=== PATIENT | female | born 1945 | race Caucasian/White ===

== ENCOUNTER → 2022-07-12 16:05 | Outpatient (BNVA) | payer MEDICARE, SELFPAY | PROVIDERS: Visit Provider Nurse Practitioner | DX: R05.9 Cough, unspecified (principal) | CPT/HCPCS: 87400 ==

== ENCOUNTER 2023-10-23 14:12 | Inpatient (IN) | payer MEDICARE, OTHER, SELFPAY ==
[2023-10-23] VITALS (15 sets, daily range): BP systolic 99–167; BP diastolic 60–95; PULSE 97–139; RESP 16–24; TEMP 36.8–39.6; O2SAT 94–100; BMI 23.1; BMI 24.4
--- NOTE | 2023-10-23 15:16 | ED_ITS ---
HPI - Fever 2 General: Chief Complaint: Fever Stated Complaint: abd pain Time Seen by Provider: 10/23/23 15:08 History of Present Illness: 78-year-old female with a history of hyp ertension and kidney stones who presents emergency room with right lower quadrant abdominal pain, nausea vomiting and fevers. Symptoms started yesterday. She had nausea and vomiting overnight. She has been having some fairly severe right-sided abdominal pain but is subsided right now. No flank pain. She says she has had surgery of kidney stones before but no abdominal surgeries. No appendectomy. No cholecystectomy. No bowel surgeries. No altered mental status. No focal motor deficits. No chest pain. No shortness of breath. No cough. Related Data Home Medications Medication Instructions Recorded Confirmed lisinopril 5 mg tablet 5 mg PO DAILY 07/12/22 07/12/22 Previous Rx's Medication Instructions Recorded albuterol sulfate 90 mcg/actuation 2 puff inhalation Q6H PRN 07/12/22 aerosol inhaler (Ventolin HFA) shortness of breath or wheezing #6.7 grams azithromycin 250 mg tablet See Rx Instructions PO .COMPLEX #6 07/12/22 tabs Allergies Allergy/AdvReac Type Severity Reaction Status Date / Time Sulfa (Sulfonamide Allergy hives Verified 10/23/23 14:39 Antibiotics) Review of Systems 2 Narrative: Constitutional symptoms: Negative except as documented in HPI. Skin symptoms: Negative except as documented in HPI. Eye symptoms: Negative except as documented in HPI. ENMT symptoms: Negative except as documented in HPI. Respiratory symptoms: Negative except as documented in HPI. Cardiovascular symptoms: Negative except as documented in HPI. Gastrointestinal symptoms: Negative except as documented in HPI. Genitourinary symptoms: Negative except as documented in HPI. Musculoskeletal symptoms: Negative except as documented in HPI. Neurologic symptoms: Negative except as documented in HPI. Psychiatric symptoms: Negative except as documented in HPI. Endocrine symptoms: Negative except as documented in HPI. Physical Exam 2 Narrative: EXAM NARRATIVE: General: Alert, no acute distress. Skin: Warm, dry. Head: Normocephalic, atraumatic. Neck: Supple, trachea midline. Eye: Extraocular movements are intact. Ears, nose, mouth and throat: Tacky oral mucosa Cardiovascular: Regular, Normal peripheral perfusion. Respiratory: Lungs are clear to auscultation, respirations are non-labored, breath sounds are equal, Symmetrical chest wall expansion. Gastrointestinal: Soft, right lateral lower abdominal pain, Non distended Musculoskeletal: Normal ROM, no deformity. Neurological: Alert and oriented, No focal neurological deficit observed. Psychiatric: Cooperative, appropriate mood & affect. Course 2 Vital Signs: Vital signs: Vital Signs Temperature 103.2 F H 10/23/23 19:22 Pulse Rate 139 H 10/23/23 19:22 Respiratory Rate 24 H 10/23/23 19:22 Blood Pressure 139/76 10/23/23 19:22 Pulse Oximetry 94 10/23/23 19:22 Oxygen Delivery Me thod Room Air 10/23/23 19:22 MDM - Fever Medical Decision Making Medical decision making: Differential diagnosis for this patient with right lower quadrant abdominal pain including but not limited to and based on the above HPI, review of systems and physical exam: Ureterolithiasis. Urinary tract infection. Appendicitis. colitis. small bowel obstruction. Crohn's flare. Pancreatitis. Cholelithiasis or cholecystitis. Hepatitis. Diverticulitis. Constipation. ovarian cyst. ovarian torsion Workup: Orders were placed to evaluate differential diagnosis based on the above differential, HPI and exam: Lab Review: Laboratory results were reviewed and interpreted by myself the emergency room physician. Patient has leukocytosis with white count of 12 and notably this is 90% left shifted. Hemoglobin is 12 as well. BUN and creatinine are 30 and 1.6 would indicate some renal failure, however this could be her baseline. I do not have any previous laboratory values available. Urine is most definitely infected and she has some hematuria as well so CT scan was ordered to rule out any obstructive uropathy or kidney stones. CT of the abdomen pelvis with contrast: Moderate asymmetric right perineal fat stranding without organized fluid collection this is likely pyelonephritis or possibly a passed stone. She has stones in both kidneys. This was reviewed and interpreted by myself the emergency room physician. I also reviewed the radiology report. I reviewed the patient's medical record Reexamination: Upon reexamination patient actually appears more ill. She is having rigors and has spiked a temperature of over 103. Her heart rate has gone from the 1 teens up to the 130s. She appears very ill. Blood pressure has maintained in the 130s. She is not requiring any oxygen. Altered mental status. No focal motor deficits. Consultation: I spoke with Dr. Pritchard who agrees with admission to the ICU. Consultation: I have consulted the PICC team for PICC line placement. She has very minimal access. And fluids were delayed secondary to a very lengthy time before IV was actually placed after many many tries. Assessment and plan: Sepsis Pyelonephritis Urinary tract infection Hematuria Renal insufficiency Tachycardia Fever -2 L normal saline bolus. Fluid volumes based on body weight. 1/3 L was given just prior to admission. -Broad-spectrum antibiotics were administered. Cefepime was given -Sepsis quality measures. -Lactic acid with a reflex was ordered. -Blood cultures were ordered. -I discussed the patient with the hospitalist on-call who is admitting the patient. - Discussed findings and plan with patient. Answered any questions. - All laboratory values were reviewed and interpreted personally by myself, the ER physician - All imaging was reviewed and interpreted personally by myself, the ER physician. - Evaluation and treatment of this problem were appropriate in the emergency setting Critical care -I spent a total of >65 minutes of critical care time managing the patient, independent of any other practitioner. -The time involved in the performance of separately reportable procedures was not counted towards critical care time. Lab Data 10/23/23 15:49 10/23/23 15:49 Radiology Impressions Abdomen/Pelvis CT 10/23/23 16:21 IMPRESSION: 1. Moderate asymmetric right perirenal fat stranding without organized fluid collection. Differential includes pyelonephritis or possibly recently passed stone given mild hydronephrosis without obstructing stone. 2. Bilateral nonobstructive nephrolithiasis. 3. Tiny left renal calyx air lucency. Query recent procedural history. Otherwise consideration for emphysematous pyelitis. 4. Additional chronic and incidental findings as above, to include atherosclerosis and colonic diverticulosis. Laboratory Results WBC 11.49 10^3/uL (3.29-11.43) H 10/23/23 15:49 RBC 3.46 10^6/uL (3.85-5.65) L 10/23/23 15:49 Hgb 12.10 g/dL (11.27-16.99) 10/23/23 15:49 Hct 36.4 % (36-47) 10/23/23 15:49 MCV 105.2 fl (85-98) H 10/23/23 15:49 MCH 35.0 pg (27-33) H 10/23/23 15:49 MCHC 33.2 g/dL (30-55) 10/23/23 15:49 RDW 14.0 % (12.1-15.1) 10/23/23 15:49 Plt Count 163 10^3/cmm (157-399) 10/23/23 15:49 MPV 10.4 fL (7.4-10.4) 10/23/23 15:49 Neut % (Auto) 90.7 % 10/23/23 15:49 Lymph % (Auto) 3.4 % 10/23/23 15:49 Edmunds % (Auto) 5.1 % 10/23/23 15:49 Eos % (Auto) 0.0 % 10/23/23 15:49 Baso % (Auto) 0.2 % 10/23/23 15:49 Neut # (Auto) 10.42 10^3/uL (1.8-7.7) H 10/23/23 15:49 Lymph # (Auto) 0.4 10^3/uL (0.8-4.8) L 10/23/23 15:49 Edmunds # (Auto) 0.6 10^3/uL (0.2-0.9) 10/23/23 15:49 Eos # (Auto) 0.0 10^3/uL (0.0-0.8) 10/23/23 15:49 Baso # (Auto) 0.0 10^3/uL (0.0-0.1) 10/23/23 15:49 Nucleated RBC % (auto) 0 % 10/23/23 15:49 Nucleated RBCs # 0.0 /100WBC 10/23/23 15:49 Sodium 142 mmol/L (136-145) 10/23/23 15:49 Potassium 4.3 mmol/L (3.5-5.1) 10/23/23 15:49 Chloride 105 mmol/L (98-107) 10/23/23 15:49 Carbon Dioxide 20 mmol/L (22-29) L 10/23/23 15:49 Anion Gap 21.3 (5-19) H 10/23/23 15:49 BUN 30 mg/dL (8-23) H 10/23/23 15:49 Creatinine 1.6 mg/dL (0.5-0.9) H 10/23/23 15:49 GFR Calculation Not Reportable 10/23/23 15:49 Glucose 114 mg/dL (65-115) 10/23/23 15:49 Calculated Osmolality 301 mOsm/kg (285-295) H 10/23/23 15:49 Lactic Acid 3.0 mmol/L (0.5-2.2) H 10/23/23 15:49 Calcium 9.8 mg/dL (8.5-10.5) 10/23/23 15:49 Total Bilirubin 0.7 mg/dL (0.15-1.2) 10/23/23 15:49 AST 17 U/L (0-32) 10/23/23 15:49 ALT 14 U/L (0-33) 10/23/23 15:49 Alkaline Phosphatase 97 U/L (35-105) 10/23/23 15:49 C-Reactive Protein 94.0 mg/L (0.0-4.9) H 10/23/23 15:49 Total Protein 7.1 g/dL (6.6-8.7) 10/23/23 15:49 Albumin 4.1 g/dL (3.5-5.2) 10/23/23 15:49 Globulin 3.0 g/dL (1.3-4.6) 10/23/23 15:49 Lipase 23 U/L (13-60) 10/23/23 15:49 Urine Color Yellow (Yellow) 10/23/23 15:07 Urine Appearance Turbid (CLEAR) A 10/23/23 15:07 Urine pH 5.5 (5-7) 10/23/23 15:07 Ur Specific [place] 1.013 (1.005-1.030) 10/23/23 15:07 Urine Protein 2+ (Negative) A 10/23/23 15:07 Urine Glucose (UA) Negative (Normal) 10/23/23 15:07 Urine Ketones Negative (Negative) 10/23/23 15:07 Urine Blood 3+ (Negative) A 10/23/23 15:07 Urine Nitrate Positive (Negative) A 10/23/23 15:07 Urine Bilirubin Negative (Negative) 10/23/23 15:07 Urine Urobilinogen 0.2 mg/dL (Negative) 10/23/23 15:07 Ur Leukocyte Esterase 3+ (Negative) A 10/23/23 15:07 Urine RBC 51-100 /hpf (0-2) H 10/23/23 15:07 Urine WBC >100 /hpf (0-5) H 10/23/23 15:07 Ur Squamous Epith Cells 0-5 /hpf (0-5) 10/23/23 15:07 Amorphous Sediment Not Reportable 10/23/23 15:07 Urine Bacteria 4+ /hpf (NONE) H 10/23/23 15:07 Hyaline Casts 2.05 /lpf 10/23/23 15:07 All radiology interpretation(s) finalized by discharge Discharge Plan Discharge Patient Disposition: Admitted As Inpatient Clinical Impression: Sepsis, Acute pyelonephritis, Urinary tract infection, Dehydration, Renal insufficiency, Fever, Sinus tachycardia Condition: Stable Coding Level of Care Code ED Coal Handler for Clara Shaikh
[2023-10-23 15:19] LABS: Charge for UA Resulting for Rev
[2023-10-23 15:25] LABS: Bilirubin Urine Negative (Negative); Blood Urine 3+ (Negative); Glucose Urine UA Negative (Normal); Ketones Urine Negative (Negative); Leukocyte Esterase Urine 3+ (Negative); Nitrate Urine Positive (Negative); Protein Urine 2+ (Negative); Specific Gravity, Urine 1.013 (1.005-1.030); Urine Appearance Turbid (CLEAR); Urine Color Yellow (Yellow); Urobilinogen Urine 0.2 mg/dL (Negative); pH Urine 5.5 (5-7)
[2023-10-23 15:30] LABS: Bacteria Urine 4+ /hpf; Hyaline Casts Urine 2.05 /lpf; RBC Urine 51-100 /hpf (0-2); Squamous Epithelial Cell Urine 0-5 /hpf (0-5); WBC Urine >100 /hpf (0-5)
[2023-10-23 15:33] LABS: Add Urine Culture? Yes
[2023-10-23 15:59] LABS: Basophils % 0.2 %; Hematocrit 36.4 % (36-47); Lymphocytes # 0.4 10^3/uL (0.8-4.8); Lymphocytes % 3.4 %; Mean Corpuscular HGB Conc 33.2 g/dL (30-55); Mean Corpuscular Volume 105.2 fl (85-98); Mean Platelet Volume 10.4 fL (7.4-10.4); Monocytes # 0.6 10^3/uL (0.2-0.9); Monocytes % 5.1 %; Neutrophils # 10.42 10^3/uL (1.8-7.7); Neutrophils % 90.7 %; Nucleated Red Blood Cells % 0 %; Platelet Count 163 10^3/cmm (157-399); Red Blood Count 3.46 10^6/uL (3.85-5.65); White Blood Count 11.49 10^3/uL (3.29-11.43)
[2023-10-23 16:21] LABS: Alanine Aminotransferase 14 U/L (0-33); Albumin Level 4.1 g/dL (3.5-5.2); Alkaline Phosphatase 97 U/L (35-105); Anion Gap 21.3 (5-19); Aspartate Amino Transferase 17 U/L (0-32); Blood Urea Nitrogen 30 mg/dL (8-23); Calcium 9.8 mg/dL (8.5-10.5); Carbon Dioxide 20 mmol/L (22-29); Chloride 105 mmol/L (98-107); Creatinine Clr Calc Pharmacy 25.7963; Glucose 114 mg/dL (65-115); Lipase 23 U/L (13-60); Osmolality Calculated 301 mOsm/kg (285-295); Potassium 4.3 mmol/L (3.5-5.1); Sodium 142 mmol/L (136-145); Total Bilirubin 0.7 mg/dL (0.15-1.2); Total Protein 7.1 g/dL (6.6-8.7)
--- NOTE | 2023-10-23 16:21 | CTR_ITS ---
PROCEDURE INFORMATION: Exam: CT Abdomen And Pelvis Without Contrast Exam date and time: 10/23/2023 4:35 PM Age: 78 years old Clinical indication: Abdominal pain TECHNIQUE: Imaging protocol: Computed tomography of the abdomen and pelvis without contrast. Radiation optimization: All CT scans at this facility use at least one of these dose optimization techniques: automated exposure control; mA and/or kV adjustment per patient size (includes targeted exams where dose is matched to clinical indication); or iterative reconstruction. COMPARISON: CT chest abdpel w/*[id number] 12/04/2017 12:04 PM RADIATION DOSE METRICS: Total DLP (mGy-cm): 436.43 FINDINGS: Lungs: Mild bibasilar linear atelectasis versus scarring. Liver: Tiny hepatic calcifications in keeping with sequela of old granulomatous disease. Otherwise unremarkable. Gallbladder and biliary ducts: Normal. No calcified stones. No ductal dilation. Pancreas: Normal. No ductal dilation. Spleen: Tiny splenic calcifications in keeping with sequela of old granulomatous disease. Otherwise unremarkable. Adrenal glands: Normal. No mass. Kidneys and ureters: There is a 2.2 cm long stone in the right lower kidney. Mild right hydronephrosis without obstructing stone. Moderate asymmetric right perirenal fat stranding without organized fluid collection. There is a 1 cm stone at the left renal pelvis without hydronephrosis. Additional left renal calcifications are stable. There is a tiny air lucency at a left upper calyx on axial image 30 of series 3 and coronal image 16 of series 9. Stable appearance of close approximation of the left kidney to the overlying posterolateral abdominal wall. Ureters are unremarkable. Stomach and bowel: No bowel dilatation to suggest obstruction. Colonic diverticulosis without findings of diverticulitis. Appendix: No evidence of appendicitis. Intraperitoneal space: Unremarkable. No free air. No significant fluid collection. Vasculature: Moderate to heavy systemic atherosclerotic calcification without abdominal aortic aneurysm. Lymph nodes: Unremarkable. No enlarged lymph nodes. Urinary bladder: Unremarkable as visualized. Reproductive: Unremarkable as visualized. Bones/joints: No acute fracture. Chronic fracture deformities of multiple right ribs. Degenerative changes along the imaged axial and proximal appendicular skeletal system. Postsurgical decompression and instrumented fusion hardware from L3-S1. Soft tissues: Unremarkable. CT/CT abdomen pelvis wo con [id number] IMPRESSION: 1. Moderate asymmetric right perirenal fat stranding without organized fluid collection. Differential includes pyelonephritis or possibly recently passed stone given mild hydronephrosis without obstructing stone. 2. Bilateral nonobstructive nephrolithiasis. 3. Tiny left renal calyx air lucency. Query recent procedural history. Otherwise consideration for emphysematous pyelitis. 4. Additional chronic and incidental findings as above, to include atherosclerosis and colonic diverticulosis.
[2023-10-23] MEDS: ondansetron 2 mg/ML SDV 2 mL 4 MG IVP (17:02)
[2023-10-23] MEDS: cefepime 2,000 MG in sodium chloride 0.9% (plus) 50 ML 100 MG IV (17:02)
[2023-10-23] MEDS: sodium chloride 0.9% 1,000 ML 999 ML IV ×2 (17:02→19:24)
[2023-10-23 17:42] LABS: Reflex Lactate Order REFLEX LACTIC ORDERD
--- NOTE | 2023-10-23 19:22 | PC.NURSE ---
fever communicated verbally to pt stripped of blankets at this time
[2023-10-23] MEDS: ibuprofen 600 mg Tablet PO (19:46)
--- NOTE | 2023-10-23 21:16 | XRR_ITS ---
PROCEDURE INFORMATION: Exam: XR Chest Exam date and time: 10/23/2023 9:57 PM Age: 78 years old Clinical indication: Device placement; Patient HX: Picc confirmation TECHNIQUE: Imaging protocol: Radiologic exam of the chest. Views: 1 view. COMPARISON: CR XR chest 1V [id number] 12/04/2017 1:23 PM FINDINGS: Tubes, catheters and devices: The tip of the right upper extremity PICC at the superior cavoatrial junction. Lungs: Left lower lobe atelectasis. No focal consolidation. Pleural spaces: Unremarkable. No pleural effusion. No pneumothorax. Heart/Mediastinum: Unremarkable. No cardiomegaly. Vasculature: Unfolding of the thoracic aorta. Aortic arch calcifications. Bones/joints: Post right total shoulder arthroplasty. Mild degenerative disease of bilateral acromioclavicular joints and moderate degenerative disease of the left glenohumeral joint. Age indeterminate fractures of the lateral arches of the right 6th, 7th and 8th ribs to be correlated with point tenderness. XR/XR chest 1V portable [id number] IMPRESSION: Tip of the right upper extremity PICC is in the superior cavoatrial junction.
--- NOTE | 2023-10-23 22:00 | PC.NURSE ---
Physician Communication Patient received 2L NS bolus per MAR in ER, a third NS L bolus ordered. Dr. Silverman contacted and order received to not administer the last ordered NS bolus but to initiate NS at 75 ml/hr continuous.
--- NOTE | 2023-10-23 22:18 | PICC.NOTE ---
Triple lumen PICC placed to right basilic vein. Referred to vascular access nurse for PICC placement due to poor access and diagnosis of sepsis. Risks and benefits discussed and informed consent obtained from patient. Right arm assessed with right basilic vein measuring 5.6 mm, straight, and apparent best choice for placement. Using sterile technique and MST, right basilic vein accessed x 1 stick. Mid-arm circumference measured 10 cm from right AC 26 cm. Trimmed cath 42 cm with 3 cm external length noted. CXR shows tip to appear to be in distal SVC, awaiting report from radiologist. Line secured with stat-lock. Insertion site covered with Biopatch and TSM. Report given to bedside nurse, MICHAEL Xie.
[2023-10-23] MEDS: MEROPENEM 2,000 MG in sodium chloride 0.9% (plus) 50 ML 100 MG IV (22:26)
[2023-10-23] MEDS: sodium chloride 0.9% 1,000 ML 75 ML IV (22:27)
[2023-10-23] MEDS: heparin 5,000 unit/mL INJ 1 mL 5000 UNIT SUBCUT (22:27)
--- NOTE | 2023-10-23 22:55 | ECG_ITS ---
[facility] Test Date: 2023-10-24 Pat Name: Deann Rodriguez Department: Room: [facility] Gender: Female Tube Bender: : 1945 Requested By: Faith Silverman Order Number: [id number] Kevin MD: Mariela Verdin M.D. Measurements Intervals [place] Rate: 93 P: 0 MS: 135 QRS: -8 QRSD: 87 T: 20 QT: 353 QTc: 441 Interpretive Statements SINUS RHYTHM No previous ECG available for comparison Electronically Signed On 10-24-2023 22:51:33 CDT by Mariela Verdin M.D. [email or web address]
--- NOTE | 2023-10-23 23:00 | P.HP_ITS ---
Providers/Chief Complaint 2 Admitting Physician: David Esteban MD Primary Care Provider: Yola Mauricio Chief Complaint: abd pain History of Present Illness Deann Rodriguez is a 78 year old female with a past medical history of hypertension, nephrolithiasis requiring surgical intervention on the left kidney remotely 15 years ago. She is brought to the hospital today with chief complaints of fever and chills that started over the past 2 days. Patient states she has felt generally unwell over the past week with overall generalized weakness. 2 days ago she started to have fever. She has been experiencing some pain over the right side of her abdomen intermittently radiating into her back but this has not been consistent. Denies any dysuria. Denies any nausea vomiting diarrhea chest pain dyspnea or palpitations. Denies any URI type symptoms. Review of Systems 2 General: Reports: 10 or more systems reviewed and unremarkable except in HPI and below Const: Denies: fever(s), chills or body aches Eyes: Denies: change in vision, blurry vision or photophobia ENMT: Reports: hoarseness; Denies: throat pain, enlarged tonsils, odynophagia or nasal congestion Card: Denies: chest pain, palpitations, irregular heart rhythm, edema, swelling of feet/ankles, lightheadedness, pre-syncope, dyspnea on exertion or orthopnea Resp: Denies: dyspnea, productive cough, non-productive cough, wheezing, stridor, pain on inspiration, change in phlegm color, hemoptysis or chest congestion GI: Denies: abdominal pain, nausea, vomiting, hematemesis, coffee ground emesis, dysphagia, heartburn, diarrhea, constipation, GI cramping, change in stool character, hematochezia or melena : Denies: flank pain, difficulty voiding, dysuria, urinary frequency, urinary urgency, urinary hesitancy or hematuria Musc: Denies: neck pain, back pain, extremity pain, joint swelling, joint warmth or deformity Neuro: Denies: headache(s), numbness in extremities, weakness in extremities, sensory changes, difficulty walking, frequent falls, dizziness, vertigo, behavioral changes, Slurred speech present or seizure-like activity Psych: Denies: anxiety, depression, suicidal ideation or homicidal ideation Endo: Denies: polyuria, polydipsia, tired all the time, cold intolerance or hot flashes Chon/Lymph: Denies: easy bruising or easy bleeding Medications/Allergies Home Medications Medication Instructions Recorded Confirmed Last Taken Type albuterol sulfate 90 mcg/actuation 2 puff inhalation Q6H PRN 07/12/22 07/12/22 Unknown Rx aerosol inhaler (Ventolin HFA) shortness of breath or wheezing #6.7 grams azithromycin 250 mg tablet See Rx Instructions PO .COMPLEX #6 07/12/22 07/12/22 Unknown Rx tabs lisinopril 5 mg tablet 5 mg PO DAILY 07/12/22 07/12/22 Unknown History Allergies Allergy/AdvReac Type Severity Reaction Status Date / Time Sulfa (Sulfonamide Allergy hives Verified 10/23/23 14:39 Antibiotics) PFSH Acute 2 PFSH: Medical History (Updated 10/24/23 @ 06:50 by Faith Silverman MD) Kidney stones Hypertension Vitals/I&O/Wt Last Vital Signs Temp 97.8 F 10/24/23 04:00 Pulse 80 10/24/23 05:54 Resp 24 H 10/24/23 04:00 BP 92/54 10/24/23 04:00 Pulse Ox 99 10/24/23 04:00 O2 Del Method Room Air 10/24/23 04:00 10/23/23 10/23/23 10/24/23 14:59 22:59 06:59 Intake Total 2050 / 2050 50 / 2100 Output Total 300 / 300 Balance 1750 / 1750 50 / 1800 Weight last 48 hrs Weight 62.5 kg Weight 64.5 kg Weight 61.235 kg Physical Exam 2 Narrative: General: No acute distress, AO x3 HEENT: PERRLA, pupils bilaterally equal and reactive, pallors not present Chest: Normal vesicular breath sounds, no added sounds, equal good air entry bilaterally CVS: S1-S2 regular, no murmurs, no tachycardia, no gallops, no rubs Abdomen: Soft, discomfort to palpation over right side of abdomen anteriorly, no organomegaly, bowel sounds present, no CVA tenderness Neuro: No focal deficits, no facial deformity, AO x3, power 5/5 in all limbs Data 10/24/23 05:37 10/24/23 05:37 Micro: Microbiology 10/23/23 19:33 Blood Culture - Preliminary Blood SPECIMEN COLLECTED 10/23/23 15:49 Blood Culture - Preliminary Blood SPECIMEN COLLECTED Other data: Radiology Impressions Abdomen/Pelvis CT 10/23/23 16:21 IMPRESSION: 1. Moderate asymmetric right perirenal fat stranding without organized fluid collection. Differential includes pyelonephritis or possibly recently passed stone given mild hydronephrosis without obstructing stone. 2. Bilateral nonobstructive nephrolithiasis. 3. Tiny left renal calyx air lucency. Query recent procedural history. Otherwise consideration for emphysematous pyelitis. 4. Additional chronic and incidental findings as above, to include atherosclerosis and colonic diverticulosis. Chest X-Ray 10/23/23 21:16 IMPRESSION: Tip of the right upper extremity PICC is in the superior cavoatrial junction. Laboratory Results WBC 8.12 10^3/uL (3.29-11.43) 10/24/23 05:37 RBC 2.69 10^6/uL (3.85-5.65) L 10/24/23 05:37 Hgb 9.50 g/dL (11.27-16.99) L 10/24/23 05:37 Hct 30.2 % (36-47) L 10/24/23 05:37 MCV 112.3 fl (85-98) H 10/24/23 05:37 MCH 35.3 pg (27-33) H 10/24/23 05:37 MCHC 31.5 g/dL (30-55) 10/24/23 05:37 RDW 14.4 % (12.1-15.1) 10/24/23 05:37 Plt Count 100 10^3/cmm (157-399) L 10/24/23 05:37 MPV 11.0 fL (7.4-10.4) H 10/24/23 05:37 Neut % (Auto) 84.1 % 10/24/23 05:37 Lymph % (Auto) 9.2 % 10/24/23 05:37 [place] % (Auto) 5.4 % 10/24/23 05:37 Eos % (Auto) 0.0 % 10/24/23 05:37 Baso % (Auto) 0.4 % 10/24/23 05:37 Neut # (Auto) 6.83 10^3/uL (1.8-7.7) 10/24/23 05:37 Lymph # (Auto) 0.8 10^3/uL (0.8-4.8) 10/24/23 05:37 [place] # (Auto) 0.4 10^3/uL (0.2-0.9) 10/24/23 05:37 Eos # (Auto) 0.0 10^3/uL (0.0-0.8) 10/24/23 05:37 Baso # (Auto) 0.0 10^3/uL (0.0-0.1) 10/24/23 05:37 Nucleated RBC % (auto) 0 % 10/24/23 05:37 Nucleated RBCs # 0.0 /100WBC 10/24/23 05:37 Sodium 143 mmol/L (136-145) 10/24/23 05:37 Potassium 3.8 mmol/L (3.5-5.1) 10/24/23 05:37 Chloride 110 mmol/L (98-107) H 10/24/23 05:37 Carbon Dioxide 18 mmol/L (22-29) L 10/24/23 05:37 Anion Gap 18.8 (5-19) 10/24/23 05:37 BUN 33 mg/dL (8-23) H 10/24/23 05:37 Creatinine 1.5 mg/dL (0.5-0.9) H 10/24/23 05:37 GFR Calculation Not Reportable 10/24/23 05:37 Glucose 112 mg/dL (65-115) 10/24/23 05:37 Calculated Osmolality 304 mOsm/kg (285-295) H 10/24/23 05:37 Lactic Acid 3.0 mmol/L (0.5-2.2) H 10/23/23 15:49 Lactic Acid (Sepsis) 3.0 mmol/L (0.5-2.2) H 10/23/23 19:33 Calcium 8.0 mg/dL (8.5-10.5) L 10/24/23 05:37 Total Bilirubin 0.6 mg/dL (0.15-1.2) 10/24/23 05:37 AST 12 U/L (0-32) 10/24/23 05:37 ALT 9 U/L (0-33) 10/24/23 05:37 Alkaline Phosphatase 73 U/L (35-105) 10/24/23 05:37 C-Reactive Protein 94.0 mg/L (0.0-4.9) H 10/23/23 15:49 Total Protein 5.6 g/dL (6.6-8.7) L 10/24/23 05:37 Albumin 3.1 g/dL (3.5-5.2) L 10/24/23 05:37 Globulin 2.5 g/dL (1.3-4.6) 10/24/23 05:37 Lipase 23 U/L (13-60) 10/23/23 15:49 TSH 1.69 uIU/mL (0.27-4.20) 10/24/23 03:23 Urine Color Yellow (Yellow) 10/23/23 15:07 Urine Appearance Turbid (CLEAR) A 10/23/23 15:07 Urine pH 5.5 (5-7) 10/23/23 15:07 Ur Specific Citra 1.013 (1.005-1.030) 10/23/23 15:07 Urine Protein 2+ (Negative) A 10/23/23 15:07 Urine Glucose (UA) Negative (Normal) 10/23/23 15:07 Urine Ketones Negative (Negative) 10/23/23 15:07 Urine Blood 3+ (Negative) A 10/23/23 15:07 Urine Nitrate Positive (Negative) A 10/23/23 15:07 Urine Bilirubin Negative (Negative) 10/23/23 15:07 Urine Urobilinogen 0.2 mg/dL (Negative) 10/23/23 15:07 Ur Leukocyte Esterase 3+ (Negative) A 10/23/23 15:07 Urine RBC 51-100 /hpf (0-2) H 10/23/23 15:07 Urine WBC >100 /hpf (0-5) H 10/23/23 15:07 Ur Squamous Epith Cells 0-5 /hpf (0-5) 10/23/23 15:07 Amorphous Sediment Not Reportable 10/23/23 15:07 Urine Bacteria 4+ /hpf (NONE) H 10/23/23 15:07 Hyaline Casts 2.05 /lpf 10/23/23 15:07 A&P Assessment and plan (1) Acute pyelonephritis: (2) Sinus tachycardia: (3) Urinary tract infection: (4) Fever: Plan 74-year-old lady with a past medical history of hypertension and nephrolithiasis, remote surgical intervention to the left kidney several years ago. Currently presents to the emergency room with generalized weakness, right-sided abdominal pain, and fever over the past 2 days. UA shows positive urine nitrate, 3+ leukocyte esterase, greater than [address] of the abdomen and pelvis showing moderate asymmetrical right perirenal fat stranding without any organized fluid collection. Noted 2.2 cm stone in the right lower kidney without any obstruction. Mild right hydronephrosis which may correlate with recently passed stone. No signs of appendicitis or diverticulitis. Overall clinical picture is compatible with acute pyelonephritis She has received a dose of cefepime in the emergency room Blood and urine cultures have been drawn With fever, sinus tachycardia, elevated lactate, concern for development of sepsis. Monitor closely in the ICU for tonight given soft blood pressure. Currently MAP is maintained at 65, however systolic blood pressure ranging between 92 to 105 mmHg at the time of this assessment. She has sinus tachycardia. Concern that she eventually may require pressor support. Peripheral perfusion currently adequate. Received 2 L IV fluid bolus in the emergency room. Will maintain IV normal saline at 75 cc an hour heparin 5000 subcutaneously every 12 hours DVT prophylaxis: Heparin 5000 s/c q12h Full code Attestations 2 Medical Necessity Statement*: Greater than 2 midnight stay is anticipated Coding Level of Care Code Acute Code for Chg Fwd High MDM includes number and complexity of problems actively addressed during encounter, amount and/or complexity of data reviewed/ordered and described risk of complication, morbidity or mortality of management as documented Diagnoses Acute pyelonephritis N10 Sinus tachycardia R00.0 Urinary tract infection N39.0 Fever R50.9
[2023-10-24] VITALS (25 sets, daily range): BP systolic 91–138; BP diastolic 49–83; PULSE 78–109; RESP 16–27; TEMP 36.1–37.4; O2SAT 92–99
[2023-10-24 04:15] LABS: Basophils % 0.2 %; Lymphocytes # 0.6 10^3/uL (0.8-4.8); Lymphocytes % 7.6 %; Mean Corpuscular HGB Conc 31.5 g/dL (30-55); Mean Corpuscular Hemoglobin 34.6 pg (27-33); Mean Corpuscular Volume 109.7 fl (85-98); Mean Platelet Volume 11.4 fL (7.4-10.4); Monocytes # 0.5 10^3/uL (0.2-0.9); Monocytes % 5.6 %; Neutrophils # 7.06 10^3/uL (1.8-7.7); Neutrophils % 85.3 %; Nucleated Red Blood Cells % 0 %; Platelet Count 95 10^3/cmm (157-399); Red Blood Count 2.37 10^6/uL (3.85-5.65); Red Cell Distribution Width 14.4 % (12.1-15.1); White Blood Count 8.28 10^3/uL (3.29-11.43)
[2023-10-24 04:45] LABS: Alanine Aminotransferase 8 U/L (0-33); Albumin Level 2.9 g/dL (3.5-5.2); Alkaline Phosphatase 67 U/L (35-105); Anion Gap 14.5 (5-19); Aspartate Amino Transferase 11 U/L (0-32); Blood Urea Nitrogen 32 mg/dL (8-23); Calcium 7.5 mg/dL (8.5-10.5); Carbon Dioxide 19 mmol/L (22-29); Chloride 113 mmol/L (98-107); Creatinine Clr Calc Pharmacy 30.1532; Globulin 2.1 g/dL (1.3-4.6); Glucose 109 mg/dL (65-115); Osmolality Calculated 303 mOsm/kg (285-295); Potassium 3.5 mmol/L (3.5-5.1); Sodium 143 mmol/L (136-145); Thyroid Stimulating Hormone 1.69 uIU/mL (0.27-4.20); Total Bilirubin 0.5 mg/dL (0.15-1.2)
[2023-10-24 05:50] LABS: Basophils % 0.4 %; Hematocrit 30.2 % (36-47); Lymphocytes # 0.8 10^3/uL (0.8-4.8); Lymphocytes % 9.2 %; Mean Corpuscular HGB Conc 31.5 g/dL (30-55); Mean Corpuscular Hemoglobin 35.3 pg (27-33); Mean Corpuscular Volume 112.3 fl (85-98); Monocytes # 0.4 10^3/uL (0.2-0.9); Monocytes % 5.4 %; Neutrophils # 6.83 10^3/uL (1.8-7.7); Neutrophils % 84.1 %; Nucleated Red Blood Cells % 0 %; Platelet Count 100 10^3/cmm (157-399); Red Blood Count 2.69 10^6/uL (3.85-5.65); Red Cell Distribution Width 14.4 % (12.1-15.1); White Blood Count 8.12 10^3/uL (3.29-11.43)
[2023-10-24 06:01] LABS: Alanine Aminotransferase 9 U/L (0-33); Albumin Level 3.1 g/dL (3.5-5.2); Alkaline Phosphatase 73 U/L (35-105); Anion Gap 18.8 (5-19); Aspartate Amino Transferase 12 U/L (0-32); Blood Urea Nitrogen 33 mg/dL (8-23); Carbon Dioxide 18 mmol/L (22-29); Chloride 110 mmol/L (98-107); Globulin 2.5 g/dL (1.3-4.6); Glucose 112 mg/dL (65-115); Osmolality Calculated 304 mOsm/kg (285-295); Potassium 3.8 mmol/L (3.5-5.1); Sodium 143 mmol/L (136-145); Total Bilirubin 0.6 mg/dL (0.15-1.2); Total Protein 5.6 g/dL (6.6-8.7)
--- NOTE | 2023-10-24 06:19 | PC.NURSE ---
notified Dr Silverman of drop in H/H, am labs drawn from picc line, labs ordered to redrawn via peripheral stick, Dr Silverman notified of repeat lab results, patient is resting comfortably in bed, denies any needs at this time
[2023-10-24] MEDS: pantoprazole DR 40 mg Tablet PO (07:57)
--- NOTE | 2023-10-24 09:13 | P.PN_ITS ---
Subjective 2 Subjective: Admitted overnight. Patient has remained hemodynamically stable. States feeling better. Remains on room air. Heart rate better controlled. Denies any nausea, vomiting, headache. Back pain is improving. Vitals/I&O/Wt Last Vital Signs Temp 97.0 F L 10/24/23 09:08 Pulse 78 10/24/23 08:13 Resp 21 H 10/24/23 08:00 BP 91/58 10/24/23 08:00 Pulse Ox 93 10/24/23 08:13 O2 Del Method Room Air 10/24/23 08:13 10/23/23 10/24/23 10/24/23 22:59 06:59 14:59 Intake Total 2050 / 0 50 / 2100 160 / 160 Output Total 300 / 300 Balance 1750 / 1750 50 / 1800 160 / 160 Weight last 48 hrs Weight 62.5 kg Weight 64.5 kg Weight 61.235 kg Physical Exam 2 Narrative: General: No acute distress, AO x3 HEENT: PERRLA, pupils bilaterally equal and reactive, pallors not present Chest: Normal vesicular breath sounds, no added sounds, equal good air entry bilaterally CVS: S1-S2 regular, no murmurs, no tachycardia, no gallops, no rubs Abdomen: Soft, discomfort to palpation over right side of abdomen anteriorly, no organomegaly, bowel sounds present, no CVA tenderness Neuro: No focal deficits, no facial deformity, AO x3, power 5/5 in all limbs Quick SOFA Score: Respiratory Rate: 21 Blood Pressure: 91/58 Shauna Coma Scale: 15 qSOFA Score: 1 If qSOFA score 2 or greater, continue: Blood Pressure Mean: 69 Bilirubin (mg/dl): 0.6 Platelets (x10?/ml): 100 Creatinine (mg/dl): 1.5 Evaluation: Current stage of sepsis: sepsis Sepsis stage criteria used: [facility] Sep-1 and Sepsis-3 Focused Exam: Vital signs: Temp Pulse Resp BP Pulse Ox O2 Del Method O2 Del Method 10/24/23 09:08 97.0 F L 10/24/23 08:13 78 93 Room Air 10/24/23 08:00 94 21 H 91/58 10/24/23 07:30 80 17 91/58 10/24/23 07:00 81 19 H 96/58 96 10/24/23 06:30 84 27 H 96/58 97 08/26/24 06:00 79 17 93/50 95 10/24/23 05:54 80 10/24/23 05:30 86 26 H 93/50 98 10/24/23 05:00 81 16 92/54 96 10/24/23 04:30 81 16 92/54 96 10/24/23 04:00 79 17 93/49 97 10/24/23 04:00 97.8 F 80 24 H 92/54 99 Room Air 10/24/23 03:30 84 19 H 93/49 97 10/24/23 03:00 80 16 91/58 96 10/24/23 02:30 83 19 H 91/58 96 10/24/23 02:00 84 26 H 101/63 96 10/24/23 01:30 86 18 101/63 96 10/24/23 01:00 87 17 99/65 96 10/24/23 00:30 91 18 99/65 95 10/24/23 00:00 96 17 99/65 95 10/23/23 23:34 98.2 F 99 18 99/65 95 Room Air 10/23/23 23:30 97 17 105/60 95 10/23/23 23:00 101 H 17 105/60 95 10/23/23 22:30 102 H 16 105/60 95 10/23/23 22:00 114 H 22 H 142/71 95 10/23/23 22:00 108 H 10/23/23 21:30 115 H 24 H 142/71 95 Date exam was performed: 10/24/23 Time exam was performed: 12:05 2 Sepsis Screen No Definite Risk 10/23/23 20:15 Respiratory Rate 21 breaths/min H (12 - 18) 10/24/23 08:00 Blood Pressure 91/58 mmHg 10/24/23 08:00 Shauna Coma Scale Score 15 10/24/23 08:00 Quick SOFA Score 1 10/24/23 09:14 SOFA Score: 2 Shauna Coma Scale Score 15 10/24/23 08:00 Blood Pressure Mean 69 mmHg 10/24/23 08:00 Total Bilirubin 0.6 mg/dL (0.15-1.2) 10/24/23 05:37 Platelet Count 100 10^3/cmm (157-399) L 10/24/23 05:37 Creatinine 1.5 mg/dL (0.5-0.9) H 10/24/23 05:37 Data 10/24/23 05:37 10/24/23 05:37 Micro: Microbiology 10/23/23 15:07 Urine Culture - Preliminary Urine,Clean Catch Gram Negative Rods 10/23/23 19:33 Blood Culture - Preliminary Blood SPECIMEN COLLECTED 10/23/23 15:49 Blood Culture - Preliminary Blood SPECIMEN COLLECTED A&P Assessment and plan (1) Acute pyelonephritis: (2) Urinary tract infection: (3) Sepsis: (4) Renal dysfunction: (5) Sinus tachycardia: Plan 74-year-old lady with a past medical history of hypertension and nephrolithiasis, remote surgical intervention to the left kidney several years ago. Pyelonephritis: Follow-up blood cultures and urine culture. Continue with empiric IV renal dosed meropenem for now. De-escalate as per culture results. Keep mean artery pressure 65. Continue with normal saline at 50 cc/h. Hold off on antihypertensive. Renal dysfunction: Do not have baseline kidney functions. Cannot rule out baseline CKD. Creatinine at 1.5 today. Medical reconciliation done for nephrotoxic drugs. Holding off on home dose of lisinopril and hydrochlorothiazide for now. Monitor renal functions daily. IV fluids as above. Check urine lites, urine creatinine. CT abdomen pelvis negative for obstructive nephropathy. Patient does give a history of kidney stones in the past. Full code Regular diet Check iron panel, vitamin B12, folate level, procalcitonin, A1c, lipid panel. Transfer to [facility] floor. Attestations 2 Medical Necessity Statement*: Requires further hospitalization for management of sepsis in setting of acute pyelonephritis, renal dysfunction with high concerns for CKD Diagnoses Acute pyelonephritis N10 Sinus tachycardia R00.0 Urinary tract infection N39.0 Sepsis A41.9 Renal dysfunction N28.9
[2023-10-24 09:49] LABS: Iron 10 ug/dL (37-145); Percent Saturation 5.3 % (20-50); Total Iron Binding Capacity 186 mcg/dl; Unsaturated Iron Binding 176 ug/dL (112-347)
[2023-10-24 09:50] LABS: Estmated Average Glucose 111; Hemoglobin A1C 5.5 % (4.0-6.0)
[2023-10-24 10:04] LABS: Procalcitonin 87.23 ng/mL (0-0.5); Vitamin B12 256 pg/mL (232-1245)
[2023-10-24 10:30] LABS: Potassium, Radom Urine 34 mmol/L; Urine Creatinine 66 mg/dL (28-217); Urine Random Chloride 102 mmol/L; Urine Random Sodium 106 mmol/L
[2023-10-24] MEDS: heparin 5,000 unit/mL INJ 1 mL 5000 UNIT SUBCUT ×2 (10:41→21:35)
[2023-10-24] MEDS: MEROPENEM 2,000 MG in sodium chloride 0.9% (plus) 50 ML 100 MG IV ×2 (10:41→21:34)
[2023-10-24] MEDS: sodium chloride 0.9% 1,000 ML 75 ML IV (12:16)
[2023-10-25] VITALS (9 sets, daily range): BP systolic 126–144; BP diastolic 75–84; PULSE 86–104; RESP 16–17; TEMP 37.1–37.4; O2SAT 94–95
[2023-10-25] MEDS: sodium chloride 0.9% 1,000 ML 75 ML IV ×2 (01:40→16:27)
[2023-10-25 05:01] LABS: Basophils % 0.4 %; Eosinophils # 0.2 10^3/uL (0.0-0.8); Eosinophils % 2.1 %; Hematocrit 27.9 % (36-47); Lymphocytes % 12.7 %; Mean Corpuscular HGB Conc 32.6 g/dL (30-55); Mean Corpuscular Hemoglobin 34.9 pg (27-33); Mean Corpuscular Volume 106.9 fl (85-98); Mean Platelet Volume 11.3 fL (7.4-10.4); Monocytes # 0.4 10^3/uL (0.2-0.9); Neutrophils # 5.91 10^3/uL (1.8-7.7); Neutrophils % 79.1 %; Nucleated Red Blood Cells % 0 %; Platelet Count 132 10^3/cmm (157-399); Red Blood Count 2.61 10^6/uL (3.85-5.65); Red Cell Distribution Width 14.2 % (12.1-15.1); White Blood Count 7.47 10^3/uL (3.29-11.43)
[2023-10-25 05:25] LABS: Alanine Aminotransferase 7 U/L (0-33); Albumin Level 3.1 g/dL (3.5-5.2); Alkaline Phosphatase 80 U/L (35-105); Anion Gap 16.3 (5-19); Aspartate Amino Transferase 10 U/L (0-32); Blood Urea Nitrogen 25 mg/dL (8-23); Calcium 8.2 mg/dL (8.5-10.5); Carbon Dioxide 19 mmol/L (22-29); Chloride 110 mmol/L (98-107); Creatinine Clr Calc Pharmacy 32.2015; Globulin 2.6 g/dL (1.3-4.6); Glucose 94 mg/dL (65-115); Osmolality Calculated 298 mOsm/kg (285-295); Potassium 3.3 mmol/L (3.5-5.1); Sodium 142 mmol/L (136-145); Total Bilirubin 0.6 mg/dL (0.15-1.2); Total Protein 5.7 g/dL (6.6-8.7)
[2023-10-25 05:32] LABS: Chol HDL Ratio 5.65 mg/dL (0.0-4.40); Cholesterol 209 mg/dL (0-200); HDL Cholesterol 37 mg/dL (60-100); LDL Cholesterol Calculated 115 mg/dL (50-129); Magnesium 1.4 mg/dL (1.7-2.3); Triglycerides 285 mg/dL (0-150); VLDL Cholestrol Calculation 57 mg/dL (0-30)
[2023-10-25 05:41] LABS: Folate Level 3.1 ng/mL (4.8-37.3)
[2023-10-25] MEDS: magnesium sulfate premix 2 GM/50 ML PIGGYBACK IV (10:03)
[2023-10-25] MEDS: potassium chloride ER 20 mEq Tablet 40 MEQ PO (10:03)
[2023-10-25] MEDS: pantoprazole DR 40 mg Tablet PO (10:03)
[2023-10-25] MEDS: folic acid 1 mg Tablet PO ×2 (10:03→18:14)
[2023-10-25] MEDS: heparin 5,000 unit/mL INJ 1 mL 5000 UNIT SUBCUT ×2 (10:04→21:47)
--- NOTE | 2023-10-25 11:11 | P.PN_ITS ---
Subjective 2 Subjective: No events overnight. Patient has remained hemodynamically stable and afebrile. Denies any nausea, vomiting, headache. States she is feeling better. Vitals/I&O/Wt Last Vital Signs Temp 99.0 F 10/25/23 07:02 Pulse 99 10/25/23 08:07 Resp 16 10/25/23 07:02 BP 127/81 10/25/23 07:02 Pulse Ox 94 10/25/23 08:07 O2 Del Method Room Air 10/25/23 08:07 10/24/23 10/25/23 10/25/23 22:59 06:59 14:59 Intake Total 530 / 2220 1000 / 3220 240 / 240 Output Total 1000 / 1000 300 / 300 Balance 530 / 2220 0 / 2220 -60 / -60 Weight last 48 hrs Weight 63.276 kg Weight 62.5 kg Weight 64.5 kg Weight 61.235 kg Physical Exam 2 Narrative: General: No acute distress, AO x3 HEENT: PERRLA, pupils bilaterally equal and reactive, pallors not present Chest: Normal vesicular breath sounds, no added sounds, equal good air entry bilaterally CVS: S1-S2 regular, no murmurs, no tachycardia, no gallops, no rubs Abdomen: Soft, discomfort to palpation over right side of abdomen anteriorly, no organomegaly, bowel sounds present, no CVA tenderness Neuro: No focal deficits, no facial deformity, AO x3, power 5/5 in all limbs Data 10/25/23 04:05 10/25/23 04:05 Micro: Microbiology 10/25/23 04:09 Blood Culture - Preliminary Blood SPECIMEN COLLECTED 10/25/23 04:05 Blood Culture - Preliminary Blood SPECIMEN COLLECTED 10/23/23 19:33 Blood Culture - Preliminary Blood NEGATIVE TO DATE 10/23/23 15:49 Blood Culture - Preliminary Blood Escherichia coli 10/23/23 15:07 Urine Culture - Preliminary Urine,Clean Catch Gram Negative Rods A&P Assessment and plan (1) Acute pyelonephritis: (2) Sinus tachycardia: (3) Urinary tract infection: (4) Sepsis: (5) Renal dysfunction: (6) Gram-negative bacteremia: Plan 74-year-old lady with a past medical history of hypertension and nephrolithiasis, remote surgical intervention to the left kidney several years ago. Pyelonephritis: Urine culture growing gram-negative rods. Blood culture 1 out of 4 bottles positive for E. coli. Repeat blood culture sent on 10/24. For now we will continue with IV meropenem empirically. Will de-escalate antibiotics as per culture sensitivities. Most likely patient will need at least 14-day course of IV antibiotics from first negative blood cultures. Will be important to know as patient does have some nonobstructive kidney stones which could end up being infected as well. Keep mean artery pressure 65. Continue with normal saline at 50 cc/h. Hold off on antihypertensive. Renal dysfunction: Do not have baseline kidney functions. Cannot rule out baseline CKD. Creatinine at 1.3 today. Medical reconciliation done for nephrotoxic drugs. Holding off on home dose of lisinopril and hydrochlorothiazide for now. Monitor renal functions daily. IV fluids as above. Appreciate urine lites, urine creatinine. CT abdomen pelvis negative for obstructive nephropathy. Patient does give a history of kidney stones in the past. Hyperlipidemia: Start on atorvastatin. Start on oral folic acid supplementation. Full code Regular diet Protonix OPD prophylaxis Heparin for DVT prophylaxis Attestations 2 Medical Necessity Statement*: Requires further hospitalization for management of gram-negative bacteremia in setting of pyelonephritis, MARC versus CKD Diagnoses Acute pyelonephritis N10 Sinus tachycardia R00.0 Urinary tract infection N39.0 Sepsis A41.9 Renal dysfunction N28.9 Gram-negative bacteremia R78.81
[2023-10-25] MEDS: MEROPENEM 2,000 MG in sodium chloride 0.9% (plus) 50 ML 100 MG IV ×2 (11:17→21:46)
[2023-10-25] MEDS: atorvastatin 40 mg Tablet PO (20:36)
[2023-10-26] VITALS (8 sets, daily range): BP systolic 126–148; BP diastolic 57–96; PULSE 79–93; RESP 17–18; TEMP 36.8–37.1; O2SAT 95–96
[2023-10-26 04:54] LABS: Basophils % 0.6 %; Eosinophils # 0.2 10^3/uL (0.0-0.8); Eosinophils % 3.1 %; Lymphocytes # 1.1 10^3/uL (0.8-4.8); Lymphocytes % 21.1 %; Mean Corpuscular HGB Conc 32.1 g/dL (30-55); Mean Corpuscular Hemoglobin 34.6 pg (27-33); Mean Corpuscular Volume 107.7 fl (85-98); Mean Platelet Volume 10.5 fL (7.4-10.4); Monocytes # 0.3 10^3/uL (0.2-0.9); Monocytes % 5.8 %; Neutrophils # 3.53 10^3/uL (1.8-7.7); Neutrophils % 68.8 %; Nucleated Red Blood Cells % 0 %; Platelet Count 135 10^3/cmm (157-399); Red Cell Distribution Width 13.7 % (12.1-15.1); White Blood Count 5.13 10^3/uL (3.29-11.43)
[2023-10-26 05:12] LABS: Alanine Aminotransferase 7 U/L (0-33); Albumin Level 3.1 g/dL (3.5-5.2); Alkaline Phosphatase 71 U/L (35-105); Anion Gap 14.8 (5-19); Aspartate Amino Transferase 9 U/L (0-32); Blood Urea Nitrogen 17 mg/dL (8-23); Calcium 8.7 mg/dL (8.5-10.5); Carbon Dioxide 21 mmol/L (22-29); Chloride 109 mmol/L (98-107); Creatinine Clr Calc Pharmacy 41.7231; Globulin 2.7 g/dL (1.3-4.6); Glucose 89 mg/dL (65-115); Osmolality Calculated 293 mOsm/kg (285-295); Potassium 3.8 mmol/L (3.5-5.1); Sodium 141 mmol/L (136-145); Total Bilirubin 0.5 mg/dL (0.15-1.2); Total Protein 5.8 g/dL (6.6-8.7)
[2023-10-26 05:19] LABS: Magnesium 1.7 mg/dL (1.7-2.3)
[2023-10-26] MEDS: sodium chloride 0.9% 1,000 ML 75 ML IV ×2 (06:02→17:14)
--- NOTE | 2023-10-26 08:47 | PC.CHAP ---
Pastoral Care Encounter/Spiritual Assessment Type of Contact [] Declined commercial real estate sales manager visit [] Patient/Family/Request visit [] Outpatient visit [] Follow-up visit [] Physician referral [] Code/Alert [x] Routine visit [] Staff referral [] Actively dying [] Patient sleeping [] Family support [] [] Out of room [] Palliative care [] [] Receiving care in room [] Pre-surgical visit [] Trauma [] Long length of stay [] ICU visit [] Other: Relational/Emotional Strength [x] Patient feels connected with others/family/visitors/staff [] Distress [] Loneliness/isolation [] Abandonment Spirituality of Patient [x] Person of Francisca [] Attends Nondenominational of their Francisca [x] Believes in Prayer [] Reads Bible or Shinto materials [] There are Spiritual issues to be addressed Rice Cleaning Machine Tender Interventions [x] Prayer [x] Active listening [] Non-anxious presence [x] Spiritual/emotional support [] Crisis/trauma care [] Spiritual counseling [] Bereavement support [] Provided bereavement packet [] Provided Bible/devotional materials [] Provided toy/stuffed animal, coloring book to patient or family member [] Provided Communion [] Anointing/[place] [] Salvation [x] Completed spiritual assessment [] Other: Impact on Illness or Injury [] Angry [] Fearful [] Anxious [] Often cries [] Exhaustion [] Unable to work [] Unable to attend church [] Unable to walk/stand [] Unable to read [] Unable to drive [] Unable to eat/drink [] Unable to sleep [] Unable to be with family [] Patient intubated [] Other: Summary Time spent with patient 5 min
[2023-10-26] MEDS: heparin 5,000 unit/mL INJ 1 mL 5000 UNIT SUBCUT ×2 (09:07→21:37)
[2023-10-26] MEDS: MEROPENEM 2,000 MG in sodium chloride 0.9% (plus) 50 ML 100 MG IV ×2 (09:07→21:37)
[2023-10-26] MEDS: pantoprazole DR 40 mg Tablet PO (09:07)
[2023-10-26] MEDS: folic acid 1 mg Tablet PO ×2 (09:07→17:14)
--- NOTE | 2023-10-26 12:30 | PC.SOCIAL ---
IMM Updated Updated pt on IMM. No questions voiced. Provided pt a copy. Initialed, dated, & timed a copy & placed in chart.
--- NOTE | 2023-10-26 12:33 | P.PN_ITS ---
Subjective 2 Subjective: Seen this morning. No acute events overnight. Initial blood culture positive, urine culture positive. Repeat blood culture pending at this time. Patient feels well. Vitals/I&O/Wt Last Vital Signs Temp 98.3 F 10/26/23 11:45 Pulse 90 10/26/23 11:45 Resp 17 10/26/23 11:45 BP 137/87 10/26/23 11:45 Pulse Ox 96 10/26/23 11:45 O2 Del Method Room Air 10/26/23 11:45 10/25/23 10/26/23 10/26/23 22:59 06:59 14:59 Intake Total 1290 / 1870 1000 / 2870 290 / 290 Balance 1290 / 1570 1000 / 2570 290 / 290 Weight last 48 hrs Weight 62.794 kg Weight 63.276 kg Physical Exam 2 Narrative: General: No acute distress, AO x3 HEENT: PERRLA, pupils bilaterally equal and reactive, pallors not present Chest: Normal vesicular breath sounds, no added sounds, equal good air entry bilaterally CVS: S1-S2 regular, no murmurs, no tachycardia, no gallops, no rubs Abdomen: Soft, nontender bowel sounds present, no CVA tenderness Neuro: No focal deficits Data 10/26/23 04:42 10/26/23 04:42 Micro: Microbiology 10/25/23 04:09 Blood Culture - Preliminary Blood NEGATIVE TO DATE 10/25/23 04:05 Blood Culture - Preliminary Blood NEGATIVE TO DATE 10/23/23 15:07 Urine Culture - Final Urine,Clean Catch Escherichia coli A&P Assessment and plan (1) Acute pyelonephritis: (2) Sinus tachycardia: (3) Urinary tract infection: (4) Sepsis: (5) Renal dysfunction: (6) Gram-negative bacteremia: Plan 74-year-old lady with a past medical history of hypertension and nephrolithiasis, remote surgical intervention to the left kidney several years ago. Pyelonephritis: Urine culture growing gram-negative rods. Blood culture 1 out of 4 bottles positive for E. coli. Repeat blood culture sent on 10/24. For now we will continue with IV meropenem empirically. Will de-escalate antibiotics as per culture sensitivities. Most likely patient will need at least 14-day course of IV antibiotics from first negative blood cultures. Will be important to know as patient does have some nonobstructive kidney stones which could end up being infected as well. 10/25: Repeat blood cultures pending at this time. Will decide on final antibiotics after results. Keep mean artery pressure 65. Continue with normal saline at 50 cc/h. Hold off on antihypertensive. Renal dysfunction: Do not have baseline kidney functions. Cannot rule out baseline CKD. Creatinine has improved to 1.0. Medical reconciliation done for nephrotoxic drugs. Holding off on home dose of lisinopril and hydrochlorothiazide for now. Monitor renal functions daily. IV fluids as above. Appreciate urine lites, urine creatinine. CT abdomen pelvis negative for obstructive nephropathy. Patient does give a history of kidney stones in the past. Hyperlipidemia: Start on atorvastatin. Start on oral folic acid supplementation. Full code Regular diet Protonix OPD prophylaxis Heparin for DVT prophylaxis Disposition: Plan to send home with IV antibiotics x 2 weeks. Will await final blood cultures and place PICC line. Attestations 2 Medical Necessity Statement*: Plan to send home with IV antibiotics x 2 weeks. Awaiting final blood culture. Most likely plan for discharge in a.m. Diagnoses Acute pyelonephritis N10 Sinus tachycardia R00.0 Urinary tract infection N39.0 Sepsis A41.9 Renal dysfunction N28.9 Gram-negative bacteremia R78.81
[2023-10-26] MEDS: atorvastatin 40 mg Tablet PO (21:36)
[2023-10-27] VITALS: BP 150/79; PULSE 86; RESP 18; TEMP 37; O2SAT 96
[2023-10-27 04:00] VITALS: BP 164/90; PULSE 98; RESP 18; TEMP 36.8; O2SAT 96
[2023-10-27 04:25] LABS: Basophils % 0.8 %; Eosinophils # 0.2 10^3/uL (0.0-0.8); Eosinophils % 4.1 %; Lymphocytes # 1.6 10^3/uL (0.8-4.8); Lymphocytes % 31.9 %; Mean Corpuscular HGB Conc 33.2 g/dL (30-55); Mean Corpuscular Hemoglobin 35.3 pg (27-33); Mean Corpuscular Volume 106.2 fl (85-98); Mean Platelet Volume 10.6 fL (7.4-10.4); Monocytes # 0.5 10^3/uL (0.2-0.9); Monocytes % 8.8 %; Neutrophils # 2.71 10^3/uL (1.8-7.7); Neutrophils % 52.6 %; Nucleated Red Blood Cells % 0 %; Platelet Count 163 10^3/cmm (157-399); Red Blood Count 2.92 10^6/uL (3.85-5.65); Red Cell Distribution Width 13.7 % (12.1-15.1); White Blood Count 5.14 10^3/uL (3.29-11.43)
[2023-10-27 04:34] LABS: Anion Gap 16.6 (5-19); Blood Urea Nitrogen 16 mg/dL (8-23); Calcium 8.9 mg/dL (8.5-10.5); Carbon Dioxide 23 mmol/L (22-29); Chloride 105 mmol/L (98-107); Creatinine Clr Calc Pharmacy 34.7693; Glucose 90 mg/dL (65-115); Osmolality Calculated 293 mOsm/kg (285-295); Potassium 3.6 mmol/L (3.5-5.1); Sodium 141 mmol/L (136-145)
[2023-10-27 04:46] LABS: Procalcitonin 18.37 ng/mL (0-0.5)
[2023-10-27 04:59] LABS: Magnesium 1.6 mg/dL (1.7-2.3)
[2023-10-27 05:22] VITALS: PULSE 87
[2023-10-27 07:46] VITALS: BP 127/89; PULSE 89; RESP 16; TEMP 37.1; O2SAT 89
[2023-10-27] MEDS: pantoprazole DR 40 mg Tablet PO (08:32)
[2023-10-27] MEDS: folic acid 1 mg Tablet PO (08:32)
--- NOTE | 2023-10-27 09:56 | PM.DCS ---
Discharge Providers Date of Admission: 10/23/23 19:24 Date of Discharge: October 27, 2023 Attending Provider at Admission: David Esteban MD Attending Provider at Discharge: Ragini Bernardo MD Primary Care Provider: Yola Mauricio Diagnoses at Discharge Discharge Diagnosis (1) Acute pyelonephritis: Status: Acute (2) Sinus tachycardia: Status: Acute (3) Urinary tract infection: Status: Acute (4) Sepsis: Status: Acute (5) Renal dysfunction: Status: Acute (6) Gram-negative bacteremia: Status: Acute Reason for Visit Reason for Visit: abd pain Hospital Course Hospital Course Patient presented to the hospital with fever chills and was diagnosed with gram-negative bacteremia and possible pyelonephritis. Urine culture blood culture was positive for E. coli pansensitive. 1 bottle was positive and repeat cultures have been negative so far. She will be discharged home on oral ciprofloxacin for total of 14 days from last negative blood culture. She has remained afebrile during hospitalization. She has to follow-up with primary care doctor at discharge. Physical Exam Narrative: General: No acute distress, AO x3 HEENT: PERRLA, pupils bilaterally equal and reactive, pallors not present Chest: Normal vesicular breath sounds, no added sounds, equal good air entry bilaterally CVS: S1-S2 regular, no murmurs, no tachycardia, no gallops, no rubs Abdomen: Soft, nontender bowel sounds present, no CVA tenderness Neuro: No focal deficits Discharge Data Studies Completed and Pending Completed Studies During Hospitalization Category Date Time Status CT abdomen pelvis wo con [id number] Stat Cat Scan 10/23/23 16:21 Completed CXRP [XR chest 1V portable [id number]] Routine Exams 10/23/23 21:16 Completed Pending at discharge Category Date Time Status Blood Culture AM LABS Lab 10/25/23 04:09 Results Blood Culture Stat Lab 10/23/23 19:33 Results Radiology Impressions Abdomen/Pelvis CT 10/23/23 16:21 IMPRESSION: 1. Moderate asymmetric right perirenal fat stranding without organized fluid collection. Differential includes pyelonephritis or possibly recently passed stone given mild hydronephrosis without obstructing stone. 2. Bilateral nonobstructive nephrolithiasis. 3. Tiny left renal calyx air lucency. Query recent procedural history. Otherwise consideration for emphysematous pyelitis. 4. Additional chronic and incidental findings as above, to include atherosclerosis and colonic diverticulosis. Chest X-Ray 10/23/23 21:16 IMPRESSION: Tip of the right upper extremity PICC is in the superior cavoatrial junction. Laboratory Results WBC 5.14 10^3/uL (3.29-11.43) 10/27/23 02:51 RBC 2.92 10^6/uL (3.85-5.65) L 10/27/23 02:51 Hgb 10.30 g/dL (11.27-16.99) L 10/27/23 02:51 Hct 31.0 % (36-47) L 10/27/23 02:51 MCV 106.2 fl (85-98) H 10/27/23 02:51 MCH 35.3 pg (27-33) H 10/27/23 02:51 MCHC 33.2 g/dL (30-55) 10/27/23 02:51 RDW 13.7 % (12.1-15.1) 10/27/23 02:51 Plt Count 163 10^3/cmm (157-399) 10/27/23 02:51 MPV 10.6 fL (7.4-10.4) H 10/27/23 02:51 Neut % (Auto) 52.6 % 10/27/23 02:51 Lymph % (Auto) 31.9 % 10/27/23 02:51 [place] % (Auto) 8.8 % 10/27/23 02:51 Eos % (Auto) 4.1 % 10/27/23 02:51 Baso % (Auto) 0.8 % 10/27/23 02:51 Neut # (Auto) 2.71 10^3/uL (1.8-7.7) 10/27/23 02:51 Lymph # (Auto) 1.6 10^3/uL (0.8-4.8) 10/27/23 02:51 [place] # (Auto) 0.5 10^3/uL (0.2-0.9) 10/27/23 02:51 Eos # (Auto) 0.2 10^3/uL (0.0-0.8) 10/27/23 02:51 Baso # (Auto) 0.0 10^3/uL (0.0-0.1) 10/27/23 02:51 Nucleated RBC % (auto) 0 % 10/27/23 02:51 Nucleated RBCs # 0.0 /100WBC 10/27/23 02:51 Sodium 141 mmol/L (136-145) 10/27/23 02:51 Potassium 3.6 mmol/L (3.5-5.1) 10/27/23 02:51 Chloride 105 mmol/L (98-107) 10/27/23 02:51 Carbon Dioxide 23 mmol/L (22-29) 10/27/23 02:51 Anion Gap 16.6 (5-19) 10/27/23 02:51 BUN 16 mg/dL (8-23) 10/27/23 02:51 Creatinine 1.2 mg/dL (0.5-0.9) H 10/27/23 02:51 GFR Calculation Not Reportable 10/27/23 02:51 Glucose 90 mg/dL (65-115) 10/27/23 02:51 Estimat Average Glucose 111 10/24/23 05:37 Hemoglobin A1c 5.5 % (4.0-6.0) 10/24/23 05:37 Calculated Osmolality 293 mOsm/kg (285-295) 10/27/23 02:51 Lactic Acid 3.0 mmol/L (0.5-2.2) H 10/23/23 15:49 Lactic Acid (Sepsis) 3.0 mmol/L (0.5-2.2) H 10/23/23 19:33 Calcium 8.9 mg/dL (8.5-10.5) 10/27/23 02:51 Magnesium 1.6 mg/dL (1.7-2.3) L 10/27/23 02:51 Iron 10 ug/dL (37-145) L 10/24/23 05:37 TIBC 186 mcg/dl 10/24/23 05:37 % Saturation 5.3 % (20-50) L 10/24/23 05:37 Unsat Iron Binding 176 ug/dL (112-347) 10/24/23 05:37 Total Bilirubin 0.5 mg/dL (0.15-1.2) 10/26/23 04:42 AST 9 U/L (0-32) 10/26/23 04:42 ALT 7 U/L (0-33) 10/26/23 04:42 Alkaline Phosphatase 71 U/L (35-105) 10/26/23 04:42 C-Reactive Protein 94.0 mg/L (0.0-4.9) H 10/23/23 15:49 Total Protein 5.8 g/dL (6.6-8.7) L 10/26/23 04:42 Albumin 3.1 g/dL (3.5-5.2) L 10/26/23 04:42 Globulin 2.7 g/dL (1.3-4.6) 10/26/23 04:42 Triglycerides 285 mg/dL (0-150) H 10/25/23 04:05 Cholesterol 209 mg/dL (0-200) H 10/25/23 04:05 LDL Cholesterol, Calc 115 mg/dL (50-129) 10/25/23 04:05 Total VLDL Cholesterol 57 mg/dL (0-30) H 10/25/23 04:05 HDL Cholesterol 37 mg/dL (60-100) L 10/25/23 04:05 Cholesterol/HDL Ratio 5.65 mg/dL (0.0-4.40) H 10/25/23 04:05 Lipase 23 U/L (13-60) 10/23/23 15:49 Vitamin B12 256 pg/mL (232-1245) 10/24/23 05:37 Folate 3.1 ng/mL (4.8-37.3) L 10/25/23 04:05 Procalcitonin 18.37 ng/mL (0-0.5) H 10/27/23 02:51 TSH 1.69 uIU/mL (0.27-4.20) 10/24/23 03:23 Urine Color Yellow (Yellow) 10/23/23 15:07 Urine Appearance Turbid (CLEAR) A 10/23/23 15:07 Urine pH 5.5 (5-7) 10/23/23 15:07 Ur Specific [place] 1.013 (1.005-1.030) 10/23/23 15:07 Urine Protein 2+ (Negative) A 10/23/23 15:07 Urine Glucose (UA) Negative (Normal) 10/23/23 15:07 Urine Ketones Negative (Negative) 10/23/23 15:07 Urine Blood 3+ (Negative) A 10/23/23 15:07 Urine Nitrate Positive (Negative) A 10/23/23 15:07 Urine Bilirubin Negative (Negative) 10/23/23 15:07 Urine Urobilinogen 0.2 mg/dL (Negative) 10/23/23 15:07 Ur Leukocyte Esterase 3+ (Negative) A 10/23/23 15:07 Urine RBC 51-100 /hpf (0-2) H 10/23/23 15:07 Urine WBC >100 /hpf (0-5) H 10/23/23 15:07 Ur Squamous Epith Cells 0-5 /hpf (0-5) 10/23/23 15:07 Amorphous Sediment Not Reportable 10/23/23 15:07 Urine Bacteria 4+ /hpf (NONE) H 10/23/23 15:07 Hyaline Casts 2.05 /lpf 10/23/23 15:07 Ur Random Sodium 106 mmol/L 10/24/23 09:50 Ur Random Potassium 34 mmol/L 10/24/23 09:50 Ur Random Chloride 102 mmol/L 10/24/23 09:50 Urine Creatinine 66 mg/dL (28-217) 10/24/23 09:50 Vitals Last Vital Signs Temp 98.7 F 10/27/23 07:46 Pulse 89 10/27/23 07:46 Resp 16 10/27/23 07:46 BP 127/89 10/27/23 07:46 Pulse Ox 89 L 10/27/23 07:46 O2 Del Method Room Air 10/27/23 04:00 Discharge Plan Discharge Patient Disposition: Home Condition: Stable Prescriptions: New atorvastatin 40 mg Tablet 40 mg PO BEDTIME Qty: 30 0RF Cipro 500 mg tablet 500 mg PO BID 13 Days Qty: 26 0RF Continued lisinopril 10 mg tablet 10 mg PO DAILY Held hydrochlorothiazide 25 mg tablet 25 mg PO DAILY Hold Instructions: see pcp Discharge Orders: Discharge Order (Routine); Ordered 10/27/23 Ordered By: Ragini Bernardo Referrals: Yola Mauricio [Primary Care Provider] - 10/28/23 3:40 pm Discharge Diet: Cardiac Discharge Activity: Resume usual activity Patient Instructions: Ciprofloxacin (By mouth), Atorvastatin (By mouth), Bacteremia (DC), Opioid Safety Discharge Attestations Time Spent in Discharge Care*: less than 30 min Quality Metrics Clinical Quality Measures [ No reported AMI, CVA or VTE this stay] Coding Level of Care Code 32265 Total time (in minutes) for Discharge: 25 Diagnoses Acute pyelonephritis N10 Sinus tachycardia R00.0 Urinary tract infection N39.0 Sepsis A41.9 Renal dysfunction N28.9 Gram-negative bacteremia R78.81
--- NOTE | 2023-10-27 11:43 | PC.NURSE ---
D/C pending transportation home. Patients grandson should be here around 12.
[2023-10-27 12:18] VITALS: BP 156/95; PULSE 108; RESP 16; TEMP 36.9; O2SAT 97
== END 2023-10-27 12:10 | disposition home or self-care (01) | DRG 872 ==
LOC: ER 19:37 → ICU 20:17 → MEDSURG 10-24 11:50
PROVIDERS: Nurse Practitioner Family; Student in an Organized Health Care Education/Training Program; Admitting Provider Student in an Organized Health Care Education/Training Program; Emergency Provider Emergency Medicine; PCP Registered Nurse; Visit Provider Internal Medicine
DX: A41.9 Sepsis, unspecified organism (principal); N10 Acute pyelonephritis; I10 Essential (primary) hypertension; Z87.442 Personal history of urinary calculi; R00.0 Tachycardia, unspecified; N28.9 Disorder of kidney and ureter, unspecified; B96.20 Unspecified Escherichia coli [E. coli] as the cause of diseases classified elsewhere; E78.5 Hyperlipidemia, unspecified
CPT/HCPCS: 36415; 36573; 71045; 74176; 80048; 80053; 80061; 81003; 81015; 82436; 82570; 82607; 82746; 83036; 83540; 83550; 83605; 83690; 83735; 84133; 84145; 84300; 84443; 85025; 86140; 87040; 87077; 87086; 87150; 87186; 87205; 93005; 96365; 96372; 96374; 96375; 96376; 99285; C1751; J0692; J1644; J2185; J2405; J3475; J7030

== ENCOUNTER → 2025-01-25 11:47 | Outpatient (BNVA) | payer MEDICARE, OTHER, SELFPAY | PROVIDERS: PCP Registered Nurse; Visit Provider Emergency Medicine | DX: L03.115 Cellulitis of right lower limb (principal); M77.31 Calcaneal spur, right foot | CPT/HCPCS: 73630 ==